=== PATIENT | female | born 2000 | race Two or more races ===

== ENCOUNTER 2021-02-20 13:14 | Inpatient (IN) | payer OTHER ==
[2021-02-20 14:33] LABS: BASO % 0.4 % (0-2.0); HEMOGLOBIN 12.9 GM/dL (10.7-15.3); MCH 28.6 pg (25.7-33.7); MEAN CELL VOLUME 86.9 fl (80-96); MEAN PLT VOLUME 10.3 fl (7.5-11.1); MONO % 4.9 % (3.8-10.2); NEUT % 81.7 % (42.8-82.8); PLATELET COUNT 181 10^3/uL (134-434); RBC 4.49 M/mm3 (3.60-5.2); RDW 14.3 % (11.6-15.6); WHITE BLOOD COUNT 12.8 K/mm3 (4.0-10.0)
[2021-02-20 14:39] LABS: INR 0.9 (0.83-1.09); PROTHROMBIN TIME (PATIENT) 10.5 SEC (9.7-13.0)
[2021-02-20 14:41] LABS: ACTIVATED PTT 23.7 SECONDS (25.2-36.5)
[2021-02-20 14:43] LABS: COCAINE, UR NEGATIVE (NEGATIVE); METHADONE, UR NEGATIVE (NEGATIVE); OPIATES, URI NEGATIVE (NEGATIVE); PHENCYCLIDINE,URINE NEGATIVE (NEGATIVE); URINE BARBITURATES NEGATIVE (NEGATIVE); URINE BENZODIAZEPINES NEGATIVE (NEGATIVE)
[2021-02-20] MEDS: DEXTROSE 5%-LACTATED RINGERS 1,000 ML IV SCH (14:45)
[2021-02-20 14:49] VITALS: BMI 28.8
[2021-02-20 14:50] LABS: URINE AMPHETAMINES NEGATIVE (NEGATIVE)
[2021-02-20 14:53] LABS: CALCIUM 9.3 mg/dL (8.5-10.1)
[2021-02-20 14:54] LABS: ALBUMIN 2.9 g/dl (3.4-5.0); BLOOD UREA NITROGEN 9.5 mg/dL (7-18)
[2021-02-20 14:57] LABS: CREATININE 0.6 mg/dL (0.55-1.3)
[2021-02-20 14:58] LABS: BILIRUBIN,TOTAL 0.4 mg/dL (0.2-1)
[2021-02-20 14:59] LABS: TOT PROT 6.9 g/dl (6.4-8.2)
[2021-02-20 15:20] LABS: HEPATITIS B SURFACE AG MATERN NON-REACTIVE (NONREACTIVE); SYPHILIS W/ RPR CONF NON-REACTIVE (NONREACTIVE)
[2021-02-20 15:48] LABS: HIV INTERPRETATION NEGATIVE (NEGATIVE)
[2021-02-20] MEDS ORDERED: FENTANYL/BUPIVACAINE/NS/PF - PCEA - 50 ML DISP.SYRIN EP ONE ×2 (17:07→21:36)
[2021-02-20] MEDS ORDERED: PCA PUMP NR ONE (17:07)
[2021-02-20] MEDS ORDERED: NALOXONE HCL 0.4 MG/ML VIAL IVPUSH PRN (17:08)
[2021-02-20] MEDS: FENTANYL/BUPIVACAINE/NS/PF - PCEA - 50 ML DISP.SYRIN EP SCH ×2 (17:35→21:30)
[2021-02-20] MEDS ORDERED: OXYTOCIN 30 UNITS in 0.9% NS 30 UNIT/500 ML INFUS.BAG IVPB ONE (19:22)
[2021-02-20] MEDS: OXYTOCIN 30 UNITS in 0.9% NS 30 UNIT/500 ML INFUS.BAG IVPB SCH (19:30)
[2021-02-20] MEDS ORDERED: SODIUM CHLORIDE 1,000 ML IV STA (19:40)
[2021-02-20] MEDS ORDERED: ePHEDrine SULFATE 50 MG/1 ML AMPULE ONE (20:09)
[2021-02-20] MEDS ORDERED: PHENYLEPHRINE HCL 10 MG/1 ML SINGLE DOSE VIAL ONE (20:09)
[2021-02-21] MEDS ORDERED: FENTANYL/BUPIVACAINE/NS/PF - PCEA - 50 ML DISP.SYRIN EP ONE ×2 (00:21→03:40)
[2021-02-21] MEDS ORDERED: AMPICILLIN SODIUM 2 GM VIAL ONE (06:32)
[2021-02-21] MEDS ORDERED: GENTAMICIN SO4 80 MG/2 ML VIAL ONE (06:33)
[2021-02-21] MEDS ORDERED: GENTAMICIN 80 MG PREMIXED IVPB 80 MG/100 ML BAG IVPB ONE (07:15)
[2021-02-21] MEDS ORDERED: AMPICILLIN - 2 GM in SODIUM CHLORIDE 100 ML IVPB ONE (07:15)
[2021-02-21] MEDS ORDERED: METOCLOPRAMIDE HCL INJECTION 10 MG/2 ML VIAL ONE (07:29)
[2021-02-21] MEDS ORDERED: METOCLOPRAMIDE HCL INJECTION 10 MG/2 ML VIAL IVPUSH ONE (07:30)
[2021-02-21] MEDS ORDERED: ACETAMINOPHEN 500 MG TABLET (FP) PO ONE (07:30)
[2021-02-21] MEDS ORDERED: ACETAMINOPHEN INJECTION 100 ML IVPB ONE (07:36)
[2021-02-21] MEDS ORDERED: ACETAMINOPHEN 650 MG SUPP.RECT RC ONE (08:15)
[2021-02-21] MEDS ORDERED: ACETAMINOPHEN 325 MG SUPP.RECT RC ONE (08:15)
[2021-02-21] MEDS ORDERED: ceFAZolin SODIUM 1 GM VIAL ONE (09:31)
[2021-02-21] MEDS ORDERED: OXYTOCIN 20 UNITS in 0.9% NS 20 UNIT/1,000 ML INFUS.BAG IV ONE (09:31)
[2021-02-21] MEDS ORDERED: LIDOCAINE HCL/EPINEPHRINE/PF 20 ML VIAL ONE (09:33)
[2021-02-21] MEDS ORDERED: morphine SULFATE/PF 1 MG/2 ML (2cc Syringe - QUVA) ONE ×3 (10:02→10:05)
[2021-02-21] MEDS ORDERED: KETOROLAC TROMETHAMINE 30 MG/1 ML VIAL ONE (10:06)
[2021-02-21] MEDS ORDERED: OXYTOCIN 10 UNITS/ML VIAL ONE (10:06)
[2021-02-21] MEDS ORDERED: ONDANSETRON 4 MG/2 ML VIAL ONE (10:06)
[2021-02-21 10:42] LABS: CORD HCO3 19.1 mmHg (20-29); CORD PCO2 59.6 mmHg (30-78); CORD pH 7.124 (7.14-7.44)
[2021-02-21 10:45] LABS: CORD HCO3 17.6 mmHg (20-29); CORD PCO2 44.8 mmHg (30-78); CORD pH 7.213 (7.14-7.44)
[2021-02-21] MEDS ORDERED: oxyCODONE HCL 5 MG TABLET PO PRN (23:57)
[2021-02-22] MEDS: IBUPROFEN 600 MG TABLET (FP) PO PRN ×3 (06:21→17:34)
[2021-02-22] MEDS: SIMETHICONE 80 MG TAB.CHEW (FP) PO PRN ×3 (09:15→21:02)
[2021-02-22] MEDS: ACETAMINOPHEN 325 MG TABLET (FP) PO PRN ×2 (09:16→21:02)
[2021-02-22] MEDS ORDERED: DIPHTH,PERTUSS(ACELL),TET 0.5 ML DISP.SYRIN IM ONE (10:00)
[2021-02-22] MEDS ORDERED: FLU VACC QS2021-22(6MOS UP)/PF 60 MCG/0.5 ML SYRINGE IM ONE (10:00)
[2021-02-22 10:56] LABS: HEMATOCRIT 23.4 % (32.4-45.2); HEMOGLOBIN 7.7 GM/dL (10.7-15.3); MEAN CELL VOLUME 87.9 fl (80-96); MEAN PLT VOLUME 9.4 fl (7.5-11.1); PLATELET COUNT 146 10^3/uL (134-434); RBC 2.66 M/mm3 (3.60-5.2); RDW 14.2 % (11.6-15.6); WHITE BLOOD COUNT 20.2 K/mm3 (4.0-10.0)
[2021-02-22 11:39] LABS: ANISOCYTOSIS 0; MACROCYTOSIS 0; PLATELET ESTIMATE NORMAL; TARGET CELLS 0
[2021-02-22] MEDS: FENTANYL/BUPIVACAINE/NS/PF - PCEA - 50 ML DISP.SYRIN EP SCH ×2 (12:35→18:50)
[2021-02-22] MEDS ORDERED: ceFAZolin SODIUM 1 GM VIAL ONE ×2 (12:44→20:19)
[2021-02-22] MEDS ORDERED: DEXTROSE 5%-WATER - 50 ML IVPB ONE ×2 (12:44→20:19)
[2021-02-22] MEDS: CEFAZOLIN 1 GM in DEXTROSE 5%-WATER - 50 ML IVPB SCH ×2 (12:53→20:49)
[2021-02-22] MEDS: FERROUS SO4 325 MG TABLET (FP) PO SCH (17:35)
[2021-02-22] MEDS: OXYTOCIN 20 UNITS in 0.9% NS 20 UNIT/1,000 ML INFUS.BAG IV SCH (20:48)
[2021-02-22] MEDS: DEXTROSE 5%-LACTATED RINGERS 1,000 ML IV SCH (20:48)
[2021-02-22] MEDS: OXYTOCIN 30 UNITS in 0.9% NS 30 UNIT/500 ML INFUS.BAG IVPB SCH (20:48)
[2021-02-23] MEDS ORDERED: DEXTROSE 5%-WATER - 50 ML IVPB ONE (03:41)
[2021-02-23] MEDS ORDERED: ceFAZolin SODIUM 1 GM VIAL ONE (03:41)
[2021-02-23] MEDS: CEFAZOLIN 1 GM in DEXTROSE 5%-WATER - 50 ML IVPB SCH (03:44)
[2021-02-23] MEDS: SIMETHICONE 80 MG TAB.CHEW (FP) PO PRN ×3 (08:52→20:25)
[2021-02-23] MEDS: FERROUS SO4 325 MG TABLET (FP) PO SCH ×2 (08:52→18:43)
[2021-02-23] MEDS: IBUPROFEN 600 MG TABLET (FP) PO PRN ×3 (08:52→20:24)
[2021-02-23] MEDS ORDERED: MULTIVITAMINS (DAILY MVI) TABLET (FP) PO SCH (10:00)
[2021-02-23] MEDS: PRENATAL VITAMINS W/ FOLIC ACID TABLET (FP) PO SCH (10:44)
[2021-02-23 21:53] VITALS: TEMP 98.5
[2021-02-23 21:57] LABS: BASO % 0.1 % (0-2.0); EOS % 0.5 % (0-4.5); HEMATOCRIT 21.9 % (32.4-45.2); HEMOGLOBIN 7.4 GM/dL (10.7-15.3); LYMPH % 13.6 % (8-40); MCH 29.3 pg (25.7-33.7); MCHC 33.8 g/dl (32.0-36.0); MEAN CELL VOLUME 86.7 fl (80-96); MEAN PLT VOLUME 8.7 fl (7.5-11.1); MONO % 4.5 % (3.8-10.2); NEUT % 81.3 % (42.8-82.8); PLATELET COUNT 173 10^3/uL (134-434); RBC 2.53 M/mm3 (3.60-5.2); RDW 14.5 % (11.6-15.6)
[2021-02-23] MEDS ORDERED: FERRIC CARBOXYMALTOSE 750 MG in SODIUM CHLORIDE 250 ML IVPB ONE (22:41)
[2021-02-24 08:46] LABS: HEMATOCRIT 24.1 % (32.4-45.2); HEMOGLOBIN 8.1 GM/dL (10.7-15.3); MCH 29.2 pg (25.7-33.7); MCHC 33.6 g/dl (32.0-36.0); MEAN CELL VOLUME 86.9 fl (80-96); MEAN PLT VOLUME 8.5 fl (7.5-11.1); PLATELET COUNT 183 10^3/uL (134-434); RBC 2.77 M/mm3 (3.60-5.2); RDW 13.8 % (11.6-15.6); WHITE BLOOD COUNT 14.2 K/mm3 (4.0-10.0)
[2021-02-24] MEDS: FERROUS SO4 325 MG TABLET (FP) PO SCH ×2 (08:58→17:36)
[2021-02-24] MEDS: SIMETHICONE 80 MG TAB.CHEW (FP) PO PRN ×2 (09:12→15:26)
[2021-02-24] MEDS: IBUPROFEN 600 MG TABLET (FP) PO PRN ×2 (09:12→15:26)
[2021-02-24] MEDS: PRENATAL VITAMINS W/ FOLIC ACID TABLET (FP) PO SCH (09:12)
[2021-02-24 09:51] LABS: ANISOCYTOSIS 1+; MACROCYTOSIS 0; PLATELET ESTIMATE NORMAL
[2021-02-24 12:17] VITALS: BP 117/75; PULSE 89
[2021-02-24] MEDS: DEXTROSE 5%-LACTATED RINGERS 1,000 ML IV SCH (15:19)
== END 2021-02-24 17:55 | disposition home or self-care (01) | DRG 540 ==
LOC: JDEL 13:14 → JLDR 14:00 → J3W 02-21 13:30
PROVIDERS: ADMIT Obstetrics & Gynecology Maternal & Fetal Medicine; ATTEND Obstetrics & Gynecology Maternal & Fetal Medicine
PROC: 10907ZC Drainage of Amniotic Fluid, Therapeutic from Products of Conception, Via Natural or Artificial Opening (ICD-10-PCS; 2021-02-20)
PROC: 10D00Z1 Extraction of Products of Conception, Low, Open Approach (ICD-10-PCS; principal; 2021-02-21)
DX: O64.0XX0 Obstructed labor due to incomplete rotation of fetal head, not applicable or unspecified (principal); O75.2 Pyrexia during labor, not elsewhere classified; O62.1 Secondary uterine inertia; O61.1 Failed instrumental induction of labor; O76 Abnormality in fetal heart rate and rhythm complicating labor and delivery; O75.81 Maternal exhaustion complicating labor and delivery; Z3A.39 39 weeks gestation of pregnancy; Z37.0 Single live birth
CPT/HCPCS: 36415; 36600; 59025; 80053; 80307; 82803; 85025; 85610; 85730; 86762; 86780; 86850; 86900; 86901; 87340; 87389; 88307-TC; 90686; 90715; C9803; G0008; J0131; J1439; U0003; U0005